=== PATIENT | female | born 1980 | race Caucasian/White ===

== ENCOUNTER 2016-12-31 07:19 | Inpatient (IN) | payer OTHER ==
[~2016-12-31] VITALS: Ht 162.6 cm; Wt 100.0 kg
[~2016-12-31 07:19] MED LIST: IBUP-1222 PO; PREN1TAB56 PO
[2016-12-31] MEDS ORDERED: MISOPROSTOL 200 MCG TABLET ONE (07:25)
[2016-12-31] MEDS ORDERED: LIDOCAINE 1%, 20ML ONE (07:25)
[2016-12-31] MEDS ORDERED: OXYTOCIN 30U/ 0.9% NaCL 500ML 500 ML ONE ×2 (07:25→10:07)
[2016-12-31] MEDS ORDERED: NEWBORN KIT ONE (07:25)
[2016-12-31] MEDS ORDERED: OXYTOCIN 30U/ 0.9% NaCL 500ML 500 ML IV ONE (07:33)
[2016-12-31] MEDS ORDERED: LACTATED RINGERS 1,000 ML IV SCH (07:33)
[2016-12-31] MEDS ORDERED: CALCIUM CARBONATE 500 MG TAB.CHEW PO PRN (08:00)
[2016-12-31] MEDS ORDERED: FENTANYL PF 100 MCG/2ML IV PRN (08:00)
[2016-12-31] MEDS ORDERED: FENTANYL PF 100 MCG/2ML IVPush PRN (08:00)
[2016-12-31] MEDS ORDERED: ONDANSETRON 2MG/ML, 2ML IVPush PRN (08:00)
[2016-12-31] MEDS ORDERED: ACETAMINOPHEN 325 MG TABLET PO PRN (08:30)
[2016-12-31] MEDS ORDERED: ONDANSETRON 2MG/ML, 2ML IV PRN (08:30)
[2016-12-31] MEDS ORDERED: OXYcodone/APAP 5/325MG TABLET PO PRN ×2 (08:30)
[2016-12-31] MEDS ORDERED: METOCLOPRAMIDE 5 MG/ML, 2ML IV PRN (08:30)
[2016-12-31] MEDS ORDERED: BISACODYL 10 MG SUPP PR PRN (08:30)
[2016-12-31] MEDS ORDERED: DOCUSATE 100 MG CAPSULE PO PRN (08:30)
[2016-12-31] MEDS ORDERED: MISOPROSTOL 200 MCG TABLET PR PRN (08:30)
[2016-12-31] MEDS ORDERED: CARBOPROST TROMETHAMINE 250 MCG/ML, 1ML IM PRN (08:30)
[2016-12-31] MEDS ORDERED: METHYLERGONOVINE 0.2 MG/ML IM PRN (08:30)
[2016-12-31] MEDS ORDERED: IBUPROFEN 600 MG TABLET ONE (10:07)
[2016-12-31] MEDS: OXYTOCIN 30U/ 0.9% NaCL 500ML 500 ML IV SCH ×2 (10:11→18:05)
[2016-12-31] MEDS: IBUPROFEN 600 MG TABLET PO PRN ×2 (10:11→19:12)
[2016-12-31] MEDS ORDERED: PRENATAL VIT/IRON/FA 1 EACH TABLET ONE (10:12)
[2016-12-31] MEDS: PRENATAL VIT/IRON/FA 1 EACH TABLET PO SCH (10:12)
[2016-12-31 12:10] VITALS: BP 121/80
[2016-12-31 16:30] VITALS: BP 120/80
[2016-12-31 21:25] VITALS: BP 126/87
[2017-01-01 02:18] VITALS: BP 123/72
[2017-01-01] MEDS: IBUPROFEN 600 MG TABLET PO PRN ×2 (02:18→08:02)
[2017-01-01] MEDS: OXYTOCIN 30U/ 0.9% NaCL 500ML 500 ML IV SCH (04:05)
[2017-01-01 05:20] VITALS: BP 119/76
[2017-01-01 07:20] VITALS: BP 117/78
[2017-01-01] MEDS ORDERED: HYDR-3240 PO (07:50)
[2017-01-01] MEDS ORDERED: IBUP-1222 PO (07:50)
[2017-01-01] MEDS: PRENATAL VIT/IRON/FA 1 EACH TABLET PO SCH (08:02)
== END 2017-01-01 11:41 | disposition home or self-care (01) | DRG 775 ==
LOC: LDOP 07:19 → LDIP 07:24 → 2NW 11:45
PROVIDERS: ADMIT Obstetrics & Gynecology; ATTEND Obstetrics & Gynecology
PROC: 10E0XZZ Delivery of Products of Conception, External Approach (ICD-10-PCS; principal; 2016-12-31)
PROC: 10907ZC Drainage of Amniotic Fluid, Therapeutic from Products of Conception, Via Natural or Artificial Opening (ICD-10-PCS; 2016-12-31)
PROC: 0HQ9XZZ Repair Perineum Skin, External Approach (ICD-10-PCS; 2016-12-31)
DX: O70.0 First degree perineal laceration during delivery (principal); Z37.0 Single live birth; Z3A.40 40 weeks gestation of pregnancy
CPT/HCPCS: 36415; 85025; 86850; 86900; J2590; J7120